=== PATIENT | male | born 1965 | race African-American/Black ===

== ENCOUNTER 2018-11-05 00:29 | Emergency (ER) | payer OTHER ==
[2018-11-05 01:09] VITALS: BP 133/85; PULSE 99; BMI 27.3
--- NOTE | 2018-11-05 01:38 | PDOC ---
History of Present Illness - General Chief Complaint: SIRS, Suspected/Possible Stated Complaint: FEVER Time Seen by Provider: 11/05/18 01:22 - History of Present Illness Initial Comments: 11/05/18 01:31 52 year old man HTN, HLD, DM, Hernia Repair. had prostate biopsy 3 days ago was told to come to the ER if fever felt he had a chill tonight, did not check temp, did not take medications had diarrhea for 2 days stopped earlier today no pain or erythma at site noted no numbness, tinlging. on bactrim after suregry Past History - Past Medical History Allergies/Adverse Reactions: Allergies Allergy/AdvReac Type Severity Reaction Status Date / Time Penicillins Allergy Rash Verified 11/05/18 01:07 Home Medications: Ambulatory Orders Aspirin 81 mg PO DAILY 11/05/18 Glipizide [Glipizide Xl] 5 mg PO DAILY 11/05/18 Lisinopril 5 mg PO DAILY 11/05/18 Diabetes: Yes HTN: Yes Hypercholesterolemia: Yes - Surgical History Abdominal Surgery: Yes (hernia) - Immunization History Immunization Up to Date: Yes - Suicide/Smoking/Psychosocial Hx Smoking History: Never smoked Have you smoked in the past 12 months: No Information on smoking cessation initiated: No Hx Alcohol Use: No Drug/Substance Use Hx: No Substance Use Type: None *Physical Exam - Vital Signs Last Vital Signs Temp Pulse Resp BP Pulse Ox 99.6 F 99 H 18 133/85 98 11/05/18 01:00 11/05/18 01:00 11/05/18 01:00 11/05/18 01:00 11/05/18 01:00 Moderate Sedation - Procedure Monitoring Vital Signs: Procedure Monitoring Vital Signs Temperature 99.6 F 11/05/18 01:00 Pulse Rate 99 H 11/05/18 01:00 Respiratory Rate 18 11/05/18 01:00 Blood Pressure 133/85 11/05/18 01:00 O2 Sat by Pulse Oximetry (%) 98 11/05/18 01:00 ED Treatment Course - LABORATORY CBC & Chemistry Diagram: 11/05/18 02:35 *DC/Admit/Observation/Transfer Diagnosis at time of Disposition: Fever - Discharge Dispostion Disposition: HOME Condition at time of disposition: Stable Decision to Admit order: No - Referrals Referrals: Nakul Gonzalez MD [Primary Care Provider] - - Patient Instructions Printed Discharge Instructions: DI for Fever (Symptom) -- Adult Additional Instructions: You were seen in the ED for complaints of fever-like symptoms In the ED you were evaluated with labwork. You were treated with fever reducers. You showed symptomatic relief. There does not appear to be an acute need for immediate hospitalization. You are advised to follow up with your Primary Care Physician within 1 week. See your Urologist within 1-2 days. Return to the ED immediately if you experience worsening fever, groin or genital pain, difficulty with urination, blood in urine, numbness or tingling at the surgical site. - Post Discharge Activity
[2018-11-05] MEDS ORDERED: ACETAMINOPHEN 325 MG TABLET (FP) PO ONE (01:45)
--- NOTE | 2018-11-05 02:12 | PDOC ---
Attending Attestation - HPI HPI: 11/05/18 02:13 The patient is a 52 year old male with a past medical history of HTN, HLD, and hernia repair here today for evaluation of fever. Patient reports recently having a prostate biopsy 3 days ago and began to feel a subjective after the procedure. He reports not checking his temperature or taking any medication. He also notes 2 days of diarrhea which stopped today. Patient denies headache, lightheadedness. Denies chills. Denies chest pain, shortness of breath. Denies nausea, vomiting, abdominal pain. Allergies: Penicillins PCP: Nakul Gonzalez - Medical Decision Making 11/05/18 02:13 Documentation prepared by LEONILA Rankin, acting as vice president medical affairs for Elena Garcia MD. <Raul Ballard - Last Filed: 11/05/18 02:13> - Resident Resident Name: Tiffanie Pierre - ED Attending Attestation I have performed the following: I have examined & evaluated the patient, The case was reviewed & discussed with the resident, I agree w/resident's findings & plan - Physicial Exam PE: 11/05/18 03:41 Agree with resident exam - Medical Decision Making 11/05/18 03:42 Pt has no fever in the ER. He had chills prior to arrival -despite the use of bactrim that was given to him by his urologist. 11/05/18 03:44 Currently he feels fine. CBC is normal. He will have a UA and urine culture and sensitivity sent. 11/05/18 06:15 urine shows blood which is expected after prostate biopsy, however he has no WBC or nitrites. He doesn't require medicine change. He is good to go home. <Elena Garcia - Last Filed: 11/05/18 06:16>
[2018-11-05] MEDS ORDERED: ACETAMINOPHEN 325 MG TABLET (FP) ONE (02:47)
[2018-11-05 02:56] LABS: BASO % 0.3 % (0-2.0); EOS % 1.2 % (0-4.5); HEMATOCRIT 41.4 % (35.4-49); HEMOGLOBIN 14.4 GM/dL (11.7-16.9); LYMPH % 14.5 % (8-40); MCH 29.3 pg (25.7-33.7); MCHC 34.9 g/dl (32.0-35.9); MEAN PLT VOLUME 9.3 fl (7.5-11.1); MONO % 13.7 % (3.8-10.2); NEUT % 70.3 % (42.8-82.8); PLATELET COUNT 173 K/MM3 (134-434); RBC 4.93 M/mm3 (4.00-5.60); RDW 14.1 % (11.9-15.9); WHITE BLOOD COUNT 5.1 K/mm3 (4.0-10.0)
[2018-11-05 03:54] VITALS: TEMP 99.2
[2018-11-05 04:12] LABS: URINE APPEARANCE CLEAR; URINE BILIRUBIN NEGATIVE (<2.0 mg/dL); URINE COLOR LTYELLOW; URINE GLUCOSE (UA) NEGATIVE (NEGATIVE); URINE KETONE NEGATIVE (NEGATIVE); URINE LEUK ESTERASE NEGATIVE (NEGATIVE); URINE NITRITE NEGATIVE (NEGATIVE); URINE PROTEIN NEGATIVE (NEGATIVE); URINE UROBILINOGEN NEGATIVE mg/dL (0.2-1.0)
== END 2018-11-05 04:27 | disposition home or self-care (01) ==
LOC: JER 00:29
DX: R50.9 Fever, unspecified (principal); I10 Essential (primary) hypertension; E78.00 Pure hypercholesterolemia, unspecified; E11.9 Type 2 diabetes mellitus without complications; Z79.84 Long term (current) use of oral hypoglycemic drugs; Z98.890 Other specified postprocedural states
CPT/HCPCS: 36415; 81003; 81015; 85025; 87086; 99281-25